=== PATIENT | male | born 2000 | race Caucasian/White ===

== ENCOUNTER 2021-04-05 21:10 | Emergency (ER) | payer SELFPAY ==
[~2021-04-05] VITALS: Ht 172.7 cm; Wt 83.8 kg
[2021-04-05 21:11] VITALS: BP 159/76
[2021-04-05 23:13] LABS: GC DNA AMPLIFICATION NEGATIVE (NEGATIVE)
== END 2021-04-06 01:22 | disposition left against medical advice (07) ==
LOC: M ED 21:10
DX: Z53.21 Procedure and treatment not carried out due to patient leaving prior to being seen by health care provider (principal)